=== PATIENT | male | born 1955 | race Caucasian/White ===

== ENCOUNTER 2023-09-23 09:43 | Observation (INO) ==
--- NOTE | 2023-09-23 09:57 | Emergency Department Note ---
Impression & Plan Weakness, Parkinson disease, Fall, Acute head trauma, Facial laceration ED Provider Note NAME: ARSH STANTON AGE: 68 SEX: M : 1955 ARRIVES VIA: Ambulance INFORMANT: [Patient][ems] ED PROVIDER(S): [Filipe Tristan MD] CHIEF COMPLAINT: Fall HISTORY OF PRESENT ILLNESS: The patient is a 68-year-old male who has Parkinson's. [place] walks [place] the local mall [place]. Today, he states his feet got away from him and he stumbled and fell forward striking a pole in the mall with his left head. He did suffer a laceration. He states he did not lose consciousness. There is no chest pain or shortness of breath. He has been in baseline health. Patient is not on blood thinning agents. He is currently unsure of his last tetanus immunization. The patient denies any headache or facial pain, no change in vision. No neck pain, back pain, chest pain or abdominal pain. No pain in his extremities. PMHx/PSHx/Social Hx: See Below PHYSICAL EXAM: GENERAL: Patient is in no acute distress. HEENT: There is a 3 cm somewhat stellate laceration to the lateral aspect of the left thigh just lateral to the eyebrow. No active bleeding. No bony step-off underneath. His left globe appears uninjured. NECK: No stridor, no adenopathy, nontender cervical spine, trachea is midline. LUNGS: Clear to auscultation bilaterally, no wheeze, no rhonchi, breath sounds equal. HEART: Without murmurs gallops or rubs, regular rate and rhythm. ABDOMEN: Soft, nontender, no peritonitis. EXTREMITIES: No cyanosis, full range of motion of all the joints without pain or difficulty. Have some older abrasions to both anterior knees. NEUROLOGIC: Awake and alert, no acute motor or sensory deficits, no focal weakness. SKIN: No jaundice, no diaphoresis. Back: Nontender thoracic or lumbar spine. DIFFERENTIAL DIAGNOSIS: Facial fracture, skull fracture, intracranial bleed, C-spine injury, dehydration, electrolyte imbalance, anemia, UTI, dysrhythmia, among others. EMERGENCY DEPARTMENT PROCEDURES: MEDICAL DECISION MAKING: There is no leukocytosis or concerning anemia. There is a normal platelet count. No renal failure or significant electrolyte abnormality. No concerning liver enzyme elevation. The patient appears to be in a euthyroid state. ECG shows a sinus rhythm, no dysrhythmia or acute ischemia. Cardiac enzyme testing x 1 is not consistent with acute cardiac injury. Urinalysis shows some dehydration, no infection. Chest x-ray does not show mediastinal widening, pneumonia or pneumothorax. Brain CT shows no acute bleed or mass effect, no skull fracture. Facial CT shows no acute fracture. C-spine CT shows no acute fracture. Patient's laceration was repaired by my PA, please see her note. Patient received 1.5 L of IV saline. He was given an Adacel booster IM. The patient has had some issues with his blood pressure and O2 saturation while here in the hospital. He has been quite sleepy and appears tired. At times, he has been confused. The patient is not safe for discharge. He is being hospitalized for observation. He very likely is somewhat dehydrated and I suspect this did contribute to his fall. His Parkinson's of course was a contributing factor as well. I did speak with case management, I spoke with the patient, the on-call hospitalist has been consulted. Prior/Outside records/notes reviewed: Today's EMS notes describing his presentation and transport to this hospital. ECG per my interpretation: Indication was fall. The ECG shows a normal sinus rhythm with a rate of 86. There is some baseline artifact. There is no acute ST elevation, no PVCs. The QTc is 459. Continuous Cardiac Monitoring per my interpretation: An order was placed for continuous cardiac monitoring. The monitor shows a rate of 82 with normal sinus rhythm. Imaging/x-ray results per my interpretation: Chest x-ray does not show mediastinal widening, pneumonia or pneumothorax. Chronic Medical/Social conditions affecting care: History of Parkinson's disease. Care/Management discussed with: Case management, the on-call hospitalist. Level of care consideration(s): After review of the information above and other included data: --I believe the patient requires escalation of care to admission DISPOSITION: Admission Past Med/Surg History Medical History Fecal incontinence Urinary symptom or sign Surgical History S/P T&A (status post tonsillectomy and adenoidectomy) Family History Mother Borderline diabetes Father Afib Brother COVID-19 Grandfather (Maternal) Borderline diabetes Denies family history of Ovarian cancer Prostate cancer Myocardial infarction Breast cancer Colorectal cancer Social History Smoking Status: Unknown if ever smoked Second Hand Exposure: No; Do You Dip or Chew Tobacco: No; Hx Alcohol Use: Yes Alcohol type: beer Alcohol Intake Frequency: 2-3 x/Week Hx Substance Use: No Preferred Language: Belarusian Communication Ability: Effective Visual Impairment: No Limitations Hearing Ability: Normal [employer]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 marital status: Current Living Situation Comment: FRIEND LIVES WITH HIM current occupational status: retired Feels Safe at Home: Yes Childhood Exposure to Second-Hand Smoke: No Diet: regular Diet Comment: regular caffeine: Yes Dental Care, Regularly: Yes Physical Activity Frequency: 5-6 Times per Week Seatbelt Use: always Sunscreen Use: No Assistive Devices: Glasses Allergies Allergies Allergy/AdvReac Type Severity Reaction Status Date / Time No Known Allergies Allergy Verified 09/23/23 10:46 Home Meds Home Medications Medication Instructions Recorded Confirmed melatonin 10 mg capsule 10 mg PO HS PRN Sleep 04/21/22 09/23/23 sildenafil 100 mg tablet (Viagra) 100 mg PO DAILY PRN Erectile 04/21/22 09/23/23 Dysfunction omeprazole 20 mg capsule,delayed 20 mg PO DAILY 02/21/23 09/23/23 release rasagiline 1 mg tablet 1 mg PO DAILY 02/21/23 09/23/23 carbidopa 25 mg-levodopa 100 mg 3 tab PO QID 09/23/23 09/23/23 tablet Results & Data (ED) Vital Signs Vital Signs - 24 hr 09/23/23 09:36 09/23/23 09:52 09/23/23 09:53 Temperature 36.5 C Temperature Source Oral Pulse Rate 82 82 Pulse Rate [Right Finger] Respiratory Rate 15 Respiratory Effort / Characteristics Respiratory Depth Respiratory Pattern Blood Pressure 116/76 Blood Pressure [Left Arm] Blood Pressure Mean 89 Blood Pressure Mean [Left Arm] Blood Pressure Position [Left Arm] Pulse Oximetry 93 85 L Oxygen Delivery Method Room Air Room Air Oxygen Flow Rate Sepsis Recent Fever Within 48 Hours No Sepsis New/Unexplained Change in Mental Status No Sepsis Action Taken by Nursing No Action Required 09/23/23 10:22 09/23/23 11:45 09/23/23 12:41 Temperature Temperature Source Pulse Rate Pulse Rate [Right Finger] 65 76 Respiratory Rate 15 22 Respiratory Effort / Characteristics Non-Labored Spontaneous Non-Labored Spontaneous Respiratory Depth Normal Normal Respiratory Pattern Regular Regular Blood Pressure Blood Pressure [Left Arm] 110/69 145/73 H Blood Pressure Mean Blood Pressure Mean [Left Arm] 82 97 Blood Pressure Position [Left Arm] Semi-fowlers Lying Pulse Oximetry 96 100 96 Oxygen Delivery Method Nasal Cannula Nasal Cannula Room Air Oxygen Flow Rate 3 3 Sepsis Recent Fever Within 48 Hours Sepsis New/Unexplained Change in Mental Status Sepsis Action Taken by Nursing 09/23/23 12:47 09/23/23 12:49 09/23/23 13:30 Temperature Temperature Source Pulse Rate Pulse Rate [Right Finger] 73 73 64 Respiratory Rate 18 Respiratory Effort / Characteristics Non-Labored Spontaneous Respiratory Depth Normal Respiratory Pattern Regular Blood Pressure Blood Pressure [Left Arm] 122/81 138/88 118/72 Blood Pressure Mean Blood Pressure Mean [Left Arm] 94 104 87 Blood Pressure Position [Left Arm] Sitting Standing Semi-fowlers Pulse Oximetry 96 Oxygen Delivery Method Room Air Oxygen Flow Rate Sepsis Recent Fever Within 48 Hours Sepsis New/Unexplained Change in Mental Status Sepsis Action Taken by Nursing 09/23/23 13:52 09/23/23 15:03 Temperature Temperature Source Pulse Rate 63 Pulse Rate [Right Finger] 60 Respiratory Rate 15 Respiratory Effort / Characteristics Non-Labored Spontaneous Respiratory Depth Normal Respiratory Pattern Regular Blood Pressure Blood Pressure [Left Arm] 135/81 Blood Pressure Mean Blood Pressure Mean [Left Arm] 99 Blood Pressure Position [Left Arm] Semi-fowlers Pulse Oximetry 98 Oxygen Delivery Method Room Air Oxygen Flow Rate Sepsis Recent Fever Within 48 Hours Sepsis New/Unexplained Change in Mental Status Sepsis Action Taken by [facility] Medications Current Medication List: was personally reviewed by me Laboratory Data Attestation: I reviewed the patient's lab results. 09/23/23 10:00 09/23/23 10:00 Lab Results 09/23/23 09/23/23 Range/Units 10:00 12:55 WBC 4.02 L (4.8-10.8) K/ul RBC 4.97 (4.70-6.10) M/uL Hgb 14.1 (14.0-18.0) g/dl Hct 43.1 (42.0-52.0) % MCV 86.7 (80.0-100.0) fL MCH 28.4 (25.0-34.0) pg MCHC 32.7 (32.0-36.0) g/dL RDW Std Deviation 44.3 (36.4-46.3) fL RDW Coeff of Lars 13.9 (11.5-14.5) % Plt Count 255 (130-400) K/uL MPV 8.4 L (9.4-12.4) fL Immature Gran % (Auto) 0.2 % Neut % (Auto) 66.2 % Lymph % (Auto) 19.7 % [place] % (Auto) 11.4 % Eos % (Auto) 2.0 % Baso % (Auto) 0.5 % Neut # (Auto) 2.66 (1.40-6.50) K/uL Lymph # (Auto) 0.79 L (1.20-3.40) K/uL [place] # (Auto) 0.46 (0.11-0.59) K/uL Eos # (Auto) 0.08 (0.00-0.50) K/uL Baso # (Auto) 0.02 (0.00-0.20) K/uL Immature Gran # (Auto) 0.01 (0.01-0.20) K/uL Sodium 139 (136-145) mmol/L Potassium 4.3 (3.5-5.1) mmol/L Chloride 105 (98-107) mmol/L Carbon Dioxide 26 (21-32) mmol/L Anion Gap 8 (3-11) BUN 17 (6-23) mg/dl Creatinine 0.82 (0.6-1.4) mg/dl Est Cr Clr Drug Dosing 102.8 ml/min Est GFR ( Amer) 105.3 ml/min Est GFR (Non-Af Amer) 90.9 ml/min BUN/Creatinine Ratio 20.7 H (10-20) Glucose 98 (70-99(Fasting)) mg/dl Calcium 9.3 (8.6-10.3) mg/dl Magnesium 2.1 (1.7-2.4) mg/dl Total Bilirubin 0.6 (0.2-1.0) mg/dl AST 14 (13-39) U/L ALT < 3 L (7-52) U/L Alkaline Phosphatase 74 (34-104) U/L Troponin I High Sens 2.6 (0-20) pg/ml Total Protein 6.8 (6.0-8.3) gm/dl Albumin 3.9 (3.4-5.0) gm/dl Globulin 2.9 (2.5-4.0) gm/dl Albumin/Globulin Ratio 1.3 (0.9-2) TSH 1.192 (0.300-4.500) uIu/ml Urine Color Yellow Urine Appearance Clear (Clear) Urine pH 7.0 (4.5-7.5) Ur Specific [place] 1.020 (1.000-1.030) Urine Protein Negative (Negative) Urine Glucose (UA) Negative (Negative) Urine Ketones 1+ H (Negative) Urine Blood Negative (Negative) Urine Nitrite Negative (Negative) Urine Bilirubin Negative (Negative) Urine Urobilinogen Negative (Negative) Ur Leukocyte Esterase Negative (Negative) Administered Medications Discontinued Medications Carbidopa/Levodopa (Carbidopa/Levodopa 25/100mg Tab) 3 tab PO ONE STA Stop: 09/23/23 14:50 Last Admin: 09/23/23 15:12 Dose: 3 tab Documented By: MANUELA Diphtheria/Pertussis/Tetanus Vacc (Diphther/Tetan/Pertus Vaccine (Tdap, Adol/Adult) 0.5ml) 0.5 ml IM .ONCE ONE Stop: 09/23/23 09:56 Last Admin: 09/23/23 10:16 Dose: 0.5 ml Documented By: ROBERTA Sodium Chloride (Nss) 500 mls @ 999 mls/hr IV .Q31M JENIFER Stop: 09/23/23 10:30 Last Infusion: 09/23/23 11:20 Dose: Infused Documented By: Admin: 09/23/23 10:17 Dose: 999 mls/hr Documented By: ROBERTA Sodium Chloride (Nss) 1,000 mls @ 999 mls/hr IV .Q1H1M ONE Stop: 09/23/23 14:24 Last Admin: 09/23/23 13:31 Dose: 999 mls/hr Documented By: MANUELA Imaging Data Radiologist's Impression: Chest X-Ray 09/23/23 09:53 XR chest 1V portable CLINICAL HISTORY: weakness TECHNIQUE: Single frontal radiograph of the chest was obtained. Comparison: Comparison is made to rib series 02/23/2023 FINDINGS: No lines and tubes are seen. The cardiomediastinal silhouette is normal. The lungs are clear. No evidence of pleural effusion or pneumothorax. IMPRESSION: No acute chest disease. ACT 112: Negative or not required by law. Electronically signed by: Ludwin Tam M.D. 09/23/2023 11:[address] 09/23/23 09:53 CT facial bones wo con CLINICAL HISTORY: fall, hit face TECHNIQUE: Multidetector row helical CT of the maxillofacial bones was performed without administration of intravenous contrast, and processed with bone and soft tissue algorithms. Coronal and sagittal reformations were obtained. Automated dose lowering techniques and/or adjustment according to patient size were utilized for this exam. Comparison: None available at the time of this dictation. FINDINGS: Nasal bones are normal. The mandible is intact. The temporomandibular joints are anatomically aligned. Pterygoid plates are intact. Zygomatic arches are intact. The globes are normal and symmetric, without proptosis, obvious disruption or lens dislocation. There is no orbital radiopaque foreign body. The orbital yepez are intact. The retrobulbar fat is without evidence of disruption. Extraocular muscles are normal and symmetric. Optic nerve sheath complexes are normal in course and caliber. Soft tissue swelling is seen in the left periorbital region. There is a mucous retention cyst in the right maxillary sinus and left maxillary sinus thickening as well. IMPRESSION: Soft tissue swelling the left renal region. No evidence of acute fracture. ACT 112: Negative or not required by law. Electronically signed by: Ludwin Tam M.D. 09/23/2023 10:[address] 09/23/23 09:54 CT head/brain wo con CLINICAL HISTORY: fall, hit head Technique: Contiguous axial CT images of the head were acquired from the base of the skull to the vertex without intravenous contrast administration. Images were viewed in brain, subdural and bone windows. Automated dose lowering techniques and/or adjustment according to patient size were utilized for this exam. Comparison: None available at the time of this dictation. Findings: Areas of decreased attenuation are present in the periventricular and subcortical white matter bilaterally consistent with small vessel ischemic disease. Generalized cerebral atrophy with commensurate enlargement of the ventricles, sulci, and cisterns is also present. There is no acute intracranial hemorrhage or evidence of acute territorial infarction. No shift of the midline structures, mass effect, or extra-axial abnormalities are shown. Atherosclerotic calcifications are present in the intracranial segments of the internal carotid arteries. Imaged portions of the paranasal sinuses and mastoid air cells are clear. The orbits appear normal. There are no acute fractures of the calvaria or scalp swelling. Impression: No acute intracranial hemorrhage, no evidence of acute territorial infarction or other acute intracranial disease process. ACT 112: Negative or not required by law. Electronically signed by: Ludwin Tam M.D. 09/23/2023 10:[address] 09/23/23 09:57 CT cervical spine wo con CLINICAL HISTORY: fall TECHNIQUE: Multidetector row helical CT of the cervical spine was performed without administration of intravenous contrast. Coronal and sagittal reformations were obtained. Automated dose lowering techniques and/or adjustment according to patient size were utilized for this exam. Comparison: None available at the time of this dictation. FINDINGS: No acute fractures or subluxations are identified. Degenerative changes are seen in the visualized spine. The alignment is normal. Soft tissues are unremarkable. IMPRESSION: Degenerative changes without evidence of acute bony injury. ACT 112: Negative or not required by law. Electronically signed by: Ludwin Tam M.D. 09/23/2023 10:47 AM Discharge Plan Visit Data Chief Complaint: Fall ED Provider: Filipe Tristan Discharge Problem: Weakness, Parkinson disease, Fall, Acute head trauma, Facial laceration Patient Disposition: Admitted As Inpatient Condition: Fair Forms Stand Alone Forms: [facility] Prescriptions Prescriptions: No Action rasagiline 1 mg tablet 1 mg PO DAILY omeprazole 20 mg capsule,delayed release(DR/EC) 20 mg PO DAILY sildenafil [Viagra] 100 mg tablet 100 mg PO DAILY PRN (Reason: Erectile Dysfunction) Rx Instructions: administer 30 minutes to 4 hours before activity melatonin 10 mg capsule 10 mg PO HS PRN (Reason: Sleep) carbidopa-levodopa 25-100 mg tablet 3 tab PO QID Referrals Referrals: Hoa Jose CRNP [Primary Care Provider] - Discharge Problem: Parkinson disease Qualifiers: Dyskinesia presence: unspecified whether dyskinesia Fluctuating manifestations: with fluctuating manifestations Qualified Code(s): G20.A2 - Parkinson's disease without dyskinesia, with fluctuations Fall Qualifiers: Encounter type: initial encounter Qualified Code(s): W19.XXXA - Unspecified fall, initial encounter Acute head trauma Qualifiers: Encounter type: initial encounter Qualified Code(s): S09.90XA - Unspecified injury of head, initial encounter Facial laceration Qualifiers: Encounter type: initial encounter Qualified Code(s): S01.81XA - Laceration without foreign body of other part of head, initial encounter
[2023-09-23 10:14] LABS: Basophils # (auto) 0.02 K/uL (0.00-0.20); Basophils % (auto) 0.5 %; Eosinophils # (auto) 0.08 K/uL (0.00-0.50); Hematocrit (blood only) 43.1 % (42.0-52.0); Hemoglobin 14.1 g/dl (14.0-18.0); Immature Granulocytes # (auto) 0.01 K/uL (0.01-0.20); Immature Granulocytes % (auto) 0.2 %; Lymphocytes # (auto) 0.79 K/uL (1.20-3.40); Lymphocytes % (auto) 19.7 %; Mean Corpuscular Hemoglobin 28.4 pg (25.0-34.0); Mean Corpuscular Hgb Conc 32.7 g/dL (32.0-36.0); Mean Corpuscular Volume 86.7 fL (80.0-100.0); Mean Platelet Volume 8.4 fL (9.4-12.4); Monocytes # (auto) 0.46 K/uL (0.11-0.59); Monocytes % (auto) 11.4 %; Neutrophils # (auto) 2.66 K/uL (1.40-6.50); Neutrophils % (auto) 66.2 %; Platelet Count 255 K/uL (130-400); RDW Coefficient of Variation 13.9 % (11.5-14.5); RDW Standard Deviation 44.3 fL (36.4-46.3); Red Blood Count 4.97 M/uL (4.70-6.10); White Blood Count 4.02 K/ul (4.8-10.8)
[2023-09-23] MEDS: DIPHTHER/TETAN/PERTUS Vaccine (Tdap, Adol/Adult) 0.5mL IM ONE (10:16)
[2023-09-23] MEDS: SODIUM CHLORIDE 0.9% 500 ML IV SCH (10:17)
[2023-09-23 10:32] LABS: Anion Gap 8 (3-11); BUN Creatinine Ratio 20.7 (10-20); Blood Urea Nitrogen 17 mg/dl (6-23); Calcium 9.3 mg/dl (8.6-10.3); Carbon Dioxide 26 mmol/L (21-32); Chloride 105 mmol/L (98-107); Creatinine Clr Calc Pharmacy 102.8 ml/min; Est GFR (African American) 105.3 ml/min; Est GFR (Non-African American) 90.9 ml/min; Glucose 98 mg/dl (70-99(Fasting)); Potassium 4.3 mmol/L (3.5-5.1); Sodium 139 mmol/L (136-145)
[2023-09-23 10:35] LABS: Alanine Aminotransferase < 3 U/L (7-52); Albumin Globulin Ratio 1.3 (0.9-2); Albumin Level 3.9 gm/dl (3.4-5.0); Alkaline Phosphatase 74 U/L (34-104); Aspartate Aminotransferase 14 U/L (13-39); Bilirubin,Total 0.6 mg/dl (0.2-1.0); Globulin 2.9 gm/dl (2.5-4.0); Magnesium 2.1 mg/dl (1.7-2.4); Total Protein 6.8 gm/dl (6.0-8.3)
[2023-09-23 10:38] LABS: Troponin I High Sensitivity 2.6 pg/ml (0-20)
--- NOTE | 2023-09-23 10:45 | CT Scan Report ---
CT head/brain wo con CLINICAL HISTORY: fall, hit head Technique: Contiguous axial CT images of the head were acquired from the base of the skull to the dorian omaira without intravenous contrast administration. Images were viewed [facility] brain[facility]. Automated dose lowering techniques and/or adjustment according to patient size were utilized for this exam. Comparison: None available at the time of this dictation. Findings: Areas of decreased attenuation are present in the periventricular and subcortical white matter bilate rally consistent with small vessel ischemic disease. Generalized cerebral atrophy with commensurate e nlargement of the ventricles, sulci, and cisterns is also present. There is no acute intracranial hem orrhage or evidence of acute territorial infarction. No shift of the midline structures, mass effect, or extra-axial abnormalities are shown. Atherosclerotic calcifications are present in the intracran ial segments of the internal carotid arteries. Imaged portions of the paranasal sinuses and mastoid air cells are clear. The orbits appear normal. There are no acute fractures of the calvaria or scalp swelling. Impression: No acute intracranial hemorrhage, no evidence of acute territorial infarction or other acute intracra nial disease process. ACT 112: Negative or not required by law. Electronically signed by: Ludwin Tam M.D. 09/23/2023 10:43 AM
[2023-09-23 10:47] LABS: Thyroid Stimulating Hormone 1.192 uIu/ml (0.300-4.500)
--- NOTE | 2023-09-23 10:49 | CT Scan Report ---
CT cervical spine wo con CLINICAL HISTORY: fall TECHNIQUE: Multidetector row helical CT of the cervical spine was performed without administration of intravenous contrast. Coronal and sagittal reformations were obtained. Automated dose lowering techn iques and/or adjustment according to patient size were utilized for this exam. Comparison: None available at the time of this dictation. FINDINGS: No acute fractures or subluxations are identified. Degenerative changes are seen in the visualized sp ine. The alignment is normal. Soft tissues are unremarkable. IMPRESSION: Degenerative changes without evidence of acute bony injury. ACT 112: Negative or not required by law. Electronically signed by: Ludwin Tam M.D. 09/23/2023 10:47 AM
--- NOTE | 2023-09-23 10:50 | CT Scan Report ---
CT facial bones wo con CLINICAL HISTORY: fall, hit face TECHNIQUE: Multidetector row helical CT of the maxillofacial bones was performed without administrati on of intravenous contrast, and processed with bone and soft tissue algorithms. Coronal and sagittal reformations were obtained. Automated dose lowering techniques and/or adjustment according to patient size were utilized for this exam. Comparison: None available at the time of this dictation. FINDINGS: Nasal bones are normal. The mandible is intact. The temporomandibular joints are anatomically aligned . Pterygoid plates are intact. Zygomatic arches are intact. The globes are normal and symmetric, without proptosis, obvious disruption or lens dislocation. Ther e is no orbital radiopaque foreign body. The orbital yepez are intact. The retrobulbar fat is without evidence of disruption. Extraocular muscles are normal and symmetric. Optic nerve sheath complexes are normal in course and caliber. Soft tissue swelling is seen in the left periorbital region. There is a mucous retention cyst in the right maxillary sinus and left maxillary sinus thickening as well. IMPRESSION: Soft tissue swelling the left renal region. No evidence of acute fracture. ACT 112: Negative or not required by law. Electronically signed by: Ludwin Tam M.D. 09/23/2023 10:49 AM
--- NOTE | 2023-09-23 11:55 | XRay Report ---
XR chest 1V portable CLINICAL HISTORY: weakness TECHNIQUE: Single frontal radiograph of the chest was obtained. Comparison: Comparison is made to rib series 02/23/2023 FINDINGS: No lines and tubes are seen. The cardiomediastinal silhouette is normal. The lungs are clear. No evid ence of pleural effusion or pneumothorax. IMPRESSION: No acute chest disease. ACT 112: Negative or not required by law. Electronically signed by: Ludwin Tam M.D. 09/23/2023 11:53 AM
--- NOTE | 2023-09-23 13:13 | Emergency Department Note ---
ED Visit Note I was asked by Dr. Tristan to perform laceration repair of this patient's facial laceration. Examination reveals a triangular laceration lateral to the left eye which measures 3 cm total length. Verbal consent was obtained to perform the procedure. Using sterile technique the wound was cleaned with Betadine. The area was sterilely draped. 5 ml of 1% buffered lidocaine was used to anesthetize the laceration. Once the patient was anesthetized, the wound was copiously irrigated under pressure with sterile saline. The wound was explored. The laceration was repaired using 7 simple interrupted 6-0 nylon sutures with the wound edges being well approximated. The patient tolerated the procedure well. Bacitracin applied.
[2023-09-23 13:14] LABS: Appearance Urine Clear (Clear); Bilirubin Urine Negative (Negative); Blood Urine Negative (Negative); Color Urine Yellow; Glucose Urine UA Negative (Negative); Ketones Urine 1+ (Negative); Leukocyte Esterase Urine Negative (Negative); Nitrite Urine Negative (Negative); Protein Urine Negative (Negative); Urobilinogen Urine Negative (Negative)
[2023-09-23] MEDS ORDERED: LACTATED RINGER'S 1,000 ML IV SCH (13:30)
[2023-09-23] MEDS: SODIUM CHLORIDE 0.9% 1,000 ML IV ONE (13:31)
--- NOTE | 2023-09-23 14:53 | History & Physical Report ---
Date of Service September 23, 2023 Assessment & Plan (1) Fall: Plan: Suspect due to underlying Parkinson's disease Does not appear safe to be at home at this time - intermittently confused in the ER, will repeat CT head in 8 hours. PT/OT (2) Facial laceration: Plan: Sutured in the ER 09/22, remove in approximately 7 days (3) Acute head trauma: Plan: Suspect some mild concussion but no headache or family members to establish baseline at this time (4) Delirium: Plan: Repeat CT head in 8 hours (5) Parkinson disease: Plan: Continue Sinemet 3 tabs QID and rasagiline Plan VTE prophylaxis - Lovenox 40 mg subcu daily Diet - regular Disposition - observation to med/tele Admission and Anticipated Discharge Date Admission Date: September 23, 2023 History of Present Illness Chief Complaint: Fall Primary Care Provider: MARK Celaya Kendra is a 68-year-old with Parkinson's disease who presents to the ER [place] the [place]. He reports his legs just got ahead of him. No chest pain, lightheadedness or shortness of breath prior to falling. He presented to the ER from his own residence with a laceration to his forehead. He reports hitting his head on a post in the mall. He otherwise feels like his normal self and is alert and orientated x3 but appears intermittently confused at times in the ER. Pulling out his IV and saying he is going home despite agreeing and discussing my recommendation is for him to stay. He is ambulatory in the room without any issues except shuffling gait. Allergies Allergy/AdvReac Type Severity Reaction Status Date / Time No Known Allergies Allergy Verified 09/23/23 10:46 Home Medications Medication Instructions Recorded Confirmed Type melatonin 10 mg capsule 10 mg PO HS PRN Sleep 04/21/22 09/23/23 History sildenafil 100 mg tablet (Viagra) 100 mg PO DAILY PRN Erectile 04/21/22 09/23/23 History Dysfunction omeprazole 20 mg capsule,delayed 20 mg PO DAILY 02/21/23 09/23/23 History release rasagiline 1 mg tablet 1 mg PO DAILY 02/21/23 09/23/23 History carbidopa 25 mg-levodopa 100 mg 3 tab PO QID 09/23/23 09/23/23 History tablet Past Med/Surg History Medical History (Updated 09/23/23 @ 16:34 by Temo Lobato MD) Parkinson disease Irritable bowel syndrome (IBS) Fecal incontinence Urinary symptom or sign Surgical History S/P T&A (status post tonsillectomy and adenoidectomy) Family History Mother Borderline diabetes Father Afib Brother COVID-19 Grandfather (Maternal) Borderline diabetes Denies family history of Ovarian cancer Prostate cancer Myocardial infarction Breast cancer Colorectal cancer Social History Smoking Status: Former smoker Tobacco Type: Cigars Cigarettes Per Day: states he smokes 1 cigar/year; Second Hand Exposure: No; Do You Dip or Chew Tobacco: No; Hx Alcohol Use: Yes Alcohol type: beer Alcohol Intake Frequency: 2-3 x/Week Hx Substance Use: No Preferred Language: Urdu Communication Ability: Effective Visual Impairment: No Limitations Hearing Ability: Normal 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 Beliefs That Will Affect Care: None marital status: Current Living Situation: Alone Current Living Situation Comment: FRIEND LIVES WITH HIM current occupational status: retired Feels Safe at Home: Yes Safety Concerns: Feels Safe At This Time Childhood Exposure to Second-Hand Smoke: No Diet: regular Diet Comment: regular caffeine: Yes Dental Care, Regularly: Yes Physical Activity Frequency: 5-6 Times per Week Seatbelt Use: always Sunscreen Use: No Assistive Devices: Cane Review of Systems Review of Systems: All systems reviewed & are unremarkable except as noted in HPI & below Physical Exam Constitutional: WD/WN, vitals as above Eyes: PERRL, conjunctivae normal, anicteric sclerae ENMT: external ear and nose normal, oropharynx normal Neck: trachea midline, no thyromegaly Respiratory: normal respiratory effort, lungs clear to auscultation Cardiovascular: RRR, no murmur, no edema Gastrointestinal (Abdomen): normal bowel sounds, soft, nontender, no hepatosplenomegaly Musculoskeletal: no cyanosis or clubbing, extremities motor strength 5/5 Skin: no rashes, warm and dry Neurologic: moves all extremities and awake; not confused (intermittent) Speech / Cognition: normal speech Motor/Sensory: + tremor (resting) Cranial Nerves: PERRL, EOM intact bilaterally, normal facial strength, tongue midline, able to rotate head bilaterally, able to elevate shoulders bilaterally, no nystagmus and symmetric palate elevation Coordination: normal [id number] test Psychiatric: A+Ox3, euthymic affect Results & Data Results & Data Vital Signs (Past 12 Hours) Vital Signs Temp Pulse Pulse Resp BP BP Pulse Ox 09/23/23 13:52 63 09/23/23 13:30 64 18 118/72 96 09/23/23 12:49 73 138/88 09/23/23 12:47 73 122/81 09/23/23 12:41 76 22 145/73 H 96 09/23/23 11:45 65 15 110/69 100 09/23/23 10:22 96 09/23/23 09:53 85 L 09/23/23 09:52 82 09/23/23 09:36 36.5 C 82 15 116/76 93 O2 Del Method O2 Flow Rate 09/23/23 13:52 09/23/23 13:30 Room Air 09/23/23 12:49 09/23/23 12:47 09/23/23 12:41 Room Air 09/23/23 11:45 Nasal Cannula 3 09/23/23 10:22 Nasal Cannula 3 09/23/23 09:53 Room Air 09/23/23 09:52 09/23/23 09:36 Room Air Laboratory Results Abnormal lab results 09/23/23 09/23/23 Range/Units 10:00 12:55 WBC 4.02 L (4.8-10.8) K/ul MPV 8.4 L (9.4-12.4) fL Lymph # (Auto) 0.79 L (1.20-3.40) K/uL BUN/Creatinine Ratio 20.7 H (10-20) ALT < 3 L (7-52) U/L Urine Ketones 1+ H (Negative) Diagnostic Findings CT head/brain wo con CLINICAL HISTORY: fall, hit head Technique: Contiguous axial CT images of the head were acquired from the base of the skull to the vertex without intravenous contrast administration. Images were viewed in brain, subdural and bone windows. Automated dose lowering techniques and/or adjustment according to patient size were utilized for this exam. Comparison: None available at the time of this dictation. Findings: Areas of decreased attenuation are present in the periventricular and subcortical white matter bilaterally consistent with small vessel ischemic disease. Generalized cerebral atrophy with commensurate enlargement of the ventricles, sulci, and cisterns is also present. There is no acute intracranial hemorrhage or evidence of acute territorial infarction. No shift of the midline structures, mass effect, or extra-axial abnormalities are shown. Atheroscler otic calcifications are present in the intracranial segments of the internal carotid arteries. Imaged portions of the paranasal sinuses and mastoid air cells are clear. The orbits appear normal. There are no acute fractures of the calvaria or scalp swelling. Impression: No acute intracranial hemorrhage, no evidence of acute territorial infarction or other acute intracranial disease process. CT cervical spine wo con CLINICAL HISTORY: fall TECHNIQUE: Multidetector row helical CT of the cervical spine was performed without administration of intravenous contrast. Coronal and sagittal reformations were obtained. Automated dose lowering techniques and/or adjustment according to patient size were utilized for this exam. Comparison: None available at the time of this dictation. FINDINGS: No acute fractures or subluxations are identified. Degenerative changes are seen in the visualized spine. The alignment is normal. Soft tissues are unremarkable. IMPRESSION: Degenerative changes without evidence of acute bony injury. CT facial bones wo con CLINICAL HISTORY: fall, hit face TECHNIQUE: Multidetector row helical CT of the maxillofacial bones was performed without administration of intravenous contrast, and processed with bone and soft tissue algorithms. Coronal and sagittal reformations were obtained. Automated dose lowering techniques and/or adjustment according to patient size were utilized for this exam. Comparison: None available at the time of this dictation. FINDINGS: Nasal bones are normal. The mandible is intact. The temporomandibular joints are anatomically aligned. Pterygoid plates are intact. Zygomatic arches are intact. The globes are normal and symmetric, without proptosis, obvious disruption or lens dislocation. There is no orbital radiopaque foreign body. The orbital yepez are intact. The retrobulbar fat is without evidence of disruption. Extraocular muscles are normal and symmetric. Optic nerve sheath complexes are normal in course and caliber. Soft tissue swelling is seen in the left periorbital region. There is a mucous retention cyst in the right maxillary sinus and left maxillary sinus thickening as well. IMPRESSION: Soft tissue swelling the left renal region. No evidence of acute fracture. XR chest 1V portable CLINICAL HISTORY: weakness TECHNIQUE: Single frontal radiograph of the chest was obtained. Comparison: Comparison is made to rib series 02/23/2023 FINDINGS: No lines and tubes are seen. The cardiomediastinal silhouette is normal. The lungs are clear. No evidence of pleural effusion or pneumothorax. IMPRESSION: No acute chest disease. Medications Administered ER medications given: Normal saline 500 mL bolus Diphtheria/pertussis/tetanus vaccine Normal saline 1 L bolus Sinemet 3 tabs p.o. ECG Rate (beats per minute): 86 Rhythm: normal sinus Findings: + LAFB and + nonspecific-ST abn Comparison ECG Date: no prior available Code Status & VTE Plan Code Status Full VTE Prophylaxis Plan VTE Prophylaxis will be ordered: Yes PG Care Time/CCT Total # of Minutes Spent Total Time Spent with Patient: Total time spent is greater than 50% in coordination of care (as documented) at patient's floor/unit and/or counseling patient: Coding Level of Care Code 25543 INT INP/OBS CARE 2/55MIN Diagnoses Fall W19.XXXA Encounter type: initial encounter Facial laceration S01.81XA Encounter type: initial encounter Acute head trauma S09.90XA Encounter type: initial encounter Delirium R41.0 Parkinson disease G20.A2 Dyskinesia presence: unspecified whether dyskinesia Fluctuating manifestations: with fluctuating manifestations (1) Fall Encounter type: initial encounter Qualified Code(s): W19.XXXA - Unspecified fall, initial encounter (2) Facial laceration Encounter type: initial encounter Qualified Code(s): S01.81XA - Laceration without foreign body of other part of head, initial encounter (3) Acute head trauma Encounter type: initial encounter Qualified Code(s): S09.90XA - Unspecified injury of head, initial encounter (5) Parkinson disease Dyskinesia presence: unspecified whether dyskinesia Fluctuating manifestations: with fluctuating manifestations Qualified Code(s): G20.A2 - Parkinson's disease without dyskinesia, with fluctuations
[2023-09-23] MEDS: CARBIDOPA/LEVODOPA 25/100MG TAB PO STA (15:12)
--- NOTE | 2023-09-23 17:04 | CT Scan Report ---
CT head/brain wo con CLINICAL HISTORY: head trauma, ongoing confusion Technique: Contiguous axial CT images of the head were acquired from the base of the skull to the dorian omaira without intravenous contrast administration. Images were viewed in brain, subdural and bone [facility] ws. Automated dose lowering techniques and/or adjustment according to patient size were utilized for this exam. Comparison: None available at the time of this dictation. Findings: Areas of decreased attenuation are present in the periventricular and subcortical white matter bilate rally consistent with small vessel ischemic disease. Generalized cerebral atrophy with commensurate e nlargement of the ventricles, sulci, and cisterns is also present. There is no acute intracranial hem orrhage or evidence of acute territorial infarction. No shift of the midline structures, mass effect, or extra-axial abnormalities are shown. Atherosclerotic calcifications are present in the intracran ial segments of the internal carotid arteries. Imaged portions of the paranasal sinuses and mastoid air cells are clear. The orbits appear normal. There are no acute fractures of the calvaria or scalp swelling. Impression: No acute intracranial hemorrhage, no evidence of acute territorial infarction or other acute intracra nial disease process. ACT 112: Negative or not required by law. Electronically signed by: Ludwin Tam M.D. 09/23/2023 5:01 PM
[2023-09-23] MEDS ORDERED: ONDANSETRON INJ 2 MG/ML 2 ML VIAL IV PRN (19:44)
[2023-09-23] MEDS ORDERED: ACETAMINOPHEN 325 MG TAB PO PRN (19:44)
[2023-09-23] MEDS: ENOXAPARIN INJ 40 MG/0.4 ML SYR SQ SCH (20:24)
[2023-09-23] MEDS: CARBIDOPA/LEVODOPA 25/100MG TAB PO SCH (20:26)
[2023-09-23] MEDS: MELATONIN 3 MG TAB PO PRN (21:31)
[2023-09-24] MEDS: LIDO/EPINEPHRINE/SOD BICARB 50 ML VIAL INFIL ONE (03:06)
--- NOTE | 2023-09-24 06:04 | Electrocardiogram Report ---
Test Reason : Blood Pressure : / mmHG Vent. Rate : 086 BPM Atrial Rate : 086 BPM P-R Int : 136 ms QRS Dur : 092 ms QT Int : 384 ms P-R-T Axes : 034 -52 032 degrees QTc Int : 459 ms Normal sinus rhythm Left anterior fascicular block Nonspecific ST abnormality Abnormal ECG No previous ECGs available Confirmed by Rohit Sigala ([id number]) on 09/24/2023 6:04:01 AM Referred By: Confirmed By:Rohit Sigala
[2023-09-24] MEDS: PANTOprazole 40 MG TAB PO SCH (08:14)
[2023-09-24] MEDS: RASAGILINE MESYLATE 1 MG TAB PO SCH (08:15)
--- NOTE | 2023-09-24 14:47 | Discharge Summary ---
Discharge Summary Date of Service September 24, 2023 Notes For Next Care Provider Hospitalized after running into [place] the mall - stating he did not no any other way to slow down. Head and Cspine CT and interval head CT without acute findings. Discharged home with home PT/OT and 24 hour supervision. Discussed at length with significant other and patient that he needs 24 hour supervision at home and should NOT be driving. Discussed trying to do everything we can to keep him safe at home so he does not have to go to a facility. Sutures place 09/22, will need to be removed in 7 days. Medication Changes From Visit none Admission HPI Per Admitting Provider Ace Gardner is a 68-year-old with Parkinson's disease who presents to the ER following a [place] the mall. He reports his legs just got ahead of him. No chest pain, lightheadedness or shortness of breath prior to falling. He presented to the ER from his own residence with a laceration to his forehead. He reports hitting his head on a post in the mall. He otherwise feels like his normal self and is alert and orientated x3 but appears intermittently confused at times in the ER. Pulling out his IV and saying he is going home despite agreeing and discussing my recommendation is for him to stay. He is ambulatory in the room without any issues except shuffling gait. Principal Dx & Hospital Course #1 = Principal Diagnosis (1) Fall: Suspect due to underlying Parkinson's disease - patient states that he was walking too fast, and the only way he knew to slow down was to hit the pole. - Head CT and c-spine without acute finding. Repeat head CT unchanged - PT/OT recommending home PT/OT Day of discharge significant other reported that he was at baseline mentation. Prolonged discussion about Ace's overall safety (and the safety of his community). He should NOT drive. Also stressed the importance of 24 hour supervision, if the significant other cannot be there then need to look into other family members or private caregivers or a facility. Encouraged patient to use walker consistently for safety. (2) Facial laceration: Sutured in the ER 09/22, remove in approximately 7 days (3) Acute head trauma: Suspect some mild concussion but overall family reports he is back to baseline (4) Parkinson disease: Continue Sinemet 3 tabs QID and rasagiline Plan Dispo: discharge to home with 24 hour supervision Discharge Exam General: NAD, VS as above HEENT: laceration to left eyebrow healing appropriately, no signs of infection Resp: normal respiratory effort, lungs clear to auscultation CV: RRR, no murmur, Extremities: Moves all extremities, no edema, mild tremor Neuro: A&O x3, Updated Medication List Medication Instructions Recorded Confirmed Type melatonin 10 mg capsule 10 mg PO HS PRN Sleep 04/21/22 09/23/23 History sildenafil 100 mg tablet (Viagra) 100 mg PO DAILY PRN Erectile 04/21/22 09/23/23 History Dysfunction omeprazole 20 mg capsule,delayed 20 mg PO DAILY 02/21/23 09/23/23 History release rasagiline 1 mg tablet 1 mg PO DAILY 02/21/23 09/23/23 History carbidopa 25 mg-levodopa 100 mg 3 tab PO QID 09/23/23 09/23/23 History tablet Hospital Stay Data Consultations 09/23/23 13:13 ED Decision to Admit Stat Diagnostic Imagining Performed Chest X-Ray 09/23/23 09:53 XR chest 1V portable CLINICAL HISTORY: weakness TECHNIQUE: Single frontal radiograph of the chest was obtained. Comparison: Comparison is made to rib series 02/23/2023 FINDINGS: No lines and tubes are seen. The cardiomediastinal silhouette is normal. The lungs are clear. No evidence of pleural effusion or pneumothorax. IMPRESSION: No acute chest disease. ACT 112: Negative or not required by law. Electronically signed by: Ludwin Tam M.D. 09/23/2023 11:[address] 09/23/23 09:53 CT facial bones wo con CLINICAL HISTORY: fall, hit face TECHNIQUE: Multidetector row helical CT of the maxillofacial bones was performed without administration of intravenous contrast, and processed with bone and soft tissue algorithms. Coronal and sagittal reformations were obtained. Automated dose lowering techniques and/or adjustment according to patient size were utilized for this exam. Comparison: None available at the time of this dictation. FINDINGS: Nasal bones are normal. The mandible is intact. The temporomandibular joints are anatomically aligned. Pterygoid plates are intact. Zygomatic arches are intact. The globes are normal and symmetric, without proptosis, obvious disruption or lens dislocation. There is no orbital radiopaque foreign body. The orbital yepez are intact. The retrobulbar fat is without evidence of disruption. Extraocular muscles are normal and symmetric. Optic nerve sheath complexes are normal in course and caliber. Soft tissue swelling is seen in the left periorbital region. There is a mucous retention cyst in the right maxillary sinus and left maxillary sinus thickening as well. IMPRESSION: Soft tissue swelling the left renal region. No evidence of acute fracture. ACT 112: Negative or not required by law. Electronically signed by: Ludwin Tam M.D. 09/23/2023 10:[address] 09/23/23 09:54 CT head/brain wo con CLINICAL HISTORY: fall, hit head Technique: Contiguous axial CT images of the head were acquired from the base of the skull to the vertex without intravenous contrast administration. Images were viewed in brain, subdural and bone windows. Automated dose lowering techniques and/or adjustment according to patient size were utilized for this exam. Comparison: None available at the time of this dictation. Findings: Areas of decreased attenuation are present in the periventricular and subcortical white matter bilaterally consistent with small vessel ischemic disease. Generalized cerebral atrophy with commensurate enlargement of the ventricles, sulci, and cisterns is also present. There is no acute intracranial hemorrhage or evidence of acute territorial infarction. No shift of the midline structures, mass effect, or extra-axial abnormalities are shown. Atherosclerotic calcifications are present in the intracranial segments of the internal carotid arteries. Imaged portions of the paranasal sinuses and mastoid air cells are clear. The orbits appear normal. There are no acute fractures of the calvaria or scalp swelling. Impression: No acute intracranial hemorrhage, no evidence of acute territorial infarction or other acute intracranial disease process. ACT 112: Negative or not required by law. Electronically signed by: Ludwin Tam M.D. 09/23/2023 10:[address] 09/23/23 09:57 CT cervical spine wo con CLINICAL HISTORY: fall TECHNIQUE: Multidetector row helical CT of the cervical spine was performed wit hout administration of intravenous contrast. Coronal and sagittal reformations were obtained. Automated dose lowering techniques and/or adjustment according to patient size were utilized for this exam. Comparison: None available at the time of this dictation. FINDINGS: No acute fractures or subluxations are identified. Degenerative changes are seen in the visualized spine. The alignment is normal. Soft tissues are unremarkable. IMPRESSION: Degenerative changes without evidence of acute bony injury. ACT 112: Negative or not required by law. Electronically signed by: Ludwin Tam M.D. 09/23/2023 10:[address] 09/23/23 18:00 CT head/brain wo con CLINICAL HISTORY: head trauma, ongoing confusion Technique: Contiguous axial CT images of the head were acquired from the base of the skull to the vertex without intravenous contrast administration. Images were viewed in brain, subdural and bone windows. Automated dose lowering techniques and/or adjustment according to patient size were utilized for this exam. Comparison: None available at the time of this dictation. Findings: Areas of decreased attenuation are present in the periventricular and subcortical white matter bilaterally consistent with small vessel ischemic disease. Generalized cerebral atrophy with commensurate enlargement of the ventricles, sulci, and cisterns is also present. There is no acute intracranial hemorrhage or evidence of acute territorial infarction. No shift of the midline structures, mass effect, or extra-axial abnormalities are shown. Atheroscl erotic calcifications are present in the intracranial segments of the internal carotid arteries. Imaged portions of the paranasal sinuses and mastoid air cells are clear. The orbits appear normal. There are no acute fractures of the calvaria or scalp swelling. Impression: No acute intracranial hemorrhage, no evidence of acute territorial infarction or other acute intracranial disease process. ACT 112: Negative or not required by law. Electronically signed by: Ludwin Tam M.D. 09/23/2023 5:01 PM Pending Results Patient Have Any Pending Studies at Discharge: No Discharge Instructions Given to Patient (Per Discharging Provider) Mr. Gardner, [place] were hospitalized after a fall while walking at the mall. We did CT scans of your head that did not show any brain injury from your falls. You do have stitches that do need to be removed, 7 days after they were put in (09/22). This can be done at your PCP office. As we discussed at length, it is VERY important you take your medications every 4 hours as prescribed. Missing medications will likely cause your parkinson's disease to progress faster than you would like. Physical therapy and occupational therapy will be coming into your home. It is VERY important that you have 24 hour supervision at home. As we also discussed you should NOT be driving. We did not make any changes to your home medications. Total Time Total Time Spent Total Time Spent (In Minutes): Time spend day of discharge 35 minutes including direct patient care, medication reconciliation, documentation, review of labs and images, and coordination of care. Coding Level of Care Code 83959 INP/OBS DISCH >30 MIN Diagnoses Fall W19.XXXA Encounter type: initial encounter Facial laceration S01.81XA Encounter type: initial encounter Acute head trauma S09.90XA Encounter type: initial encounter Parkinson disease G20.A2 Dyskinesia presence: unspecified whether dyskinesia Fluctuating manifestations: with fluctuating manifestations
== END 2023-09-24 15:36 | disposition home or self-care (01) ==
LOC: ED 09:43 → 2N 09:43 → SUATTDRO 14:48 → 2N 17:26